=== PATIENT | male | born 1980 | race Caucasian/White ===

== ENCOUNTER 2016-07-06 21:37 | Emergency (ER) | payer OTHER ==
[2016-07-06] MEDS ORDERED: IOPAMIDOL 370 (76%) IV.SOLN 150 ML IV ONE (21:38)
[2016-07-07 00:29] LABS: ABSOLUTE NEUTROPHIL COUNT 5.3 K/mm3 (1.8-7.7); BASO % 0.4 % (0.2-1.0); EOS # 0.2 (0.0-0.5); EOS % 1.7 % (0.9-2.9); HEMATOCRIT 45.1 % (32.0-52.0); IMM NEUT # 0.1 K/mm3 (0-0.2); IMM NEUT% 0.8 % (0-1); LYMPH % 32.7 % (15-45); MEAN CELL VOLUME 82.9 fl (80.0-94.0); MEAN CORPUSCULAR HEMOGLOBIN 29.4 pg (27.0-31.0); MEAN CORPUSCULAR HGB CONC 35.5 g/dl (33.0-37.0); MEAN PLATELET VOLUME 9.4 fl (7.4-10.4); MONO # 0.7 (0.0-0.8); MONO % 7.1 % (4-12); NEUT % 57.3 % (43-75); PLATELET COUNT 282 K/mm3 (130-400); RED CELL DISTRIBUTION WIDTH 11.6 % (11.5-14.5)
[2016-07-07 00:41] LABS: CALCIUM 9.7 mg/dL (8.6-10.3)
--- NOTE | 2016-07-07 08:55 | CT ---
Examination: CT angiogram of the chest abdomen and pelvis. 3-D postprocessing. Clinical indication: Chest pressure and pain now radiating to right upper quadrant. Technique: Axial images were acquired through the chest abdomen and pelvis in a standard fashion. 4 mm stacked images were reviewed in the axial, sagittal and coronal planes. Upon completion, following uneventful administration of 150 mL of Isovue-[id number] intravenously, axial images were acquired through the chest abdomen and pelvis in a similar fashion during an arterial phase injection. 3-D post processing was performed as well at the [employer] workstation. NASCET criteria was used for stenosis measurement. Comparisons:None Findings: Thorax CTA:( without and with contrast): Non-angiogram findings: The lungs are clear. Thoracic inlet mediastinum heart pericardium pleural margins osseous structures and overlying soft tissues are normal. Abdomen CTA:( without and with contrast): Non-angiogram findings: The liver, spleen, pancreas, adrenals and visualized segments of small and large bowel are within normal limits. The kidneys are without solid mass or hydronephrosis. Left kidney exhibits a 2.2 cm cystic lesion. There is no nephrolithiasis. There is no retroperitoneal adenopathy. No inflammatory stranding is identified. Pelvic CTA: (Without and with contrast): Non-angiogram findings: There is no pelvic adenopathy or inflammatory stranding identified. The overlying soft tissues are within normal limits. The osseous structures are normal. There is diverticulosis without evidence of acute diverticulitis. The appendix is unremarkable. The prostate and bladder is within normal limits. There is no pelvic lymphadenopathy. CT angiogram findings (chest abdomen and pelvis): The thoracic and abdominal aorta are normal. There is no evidence of dissection or aneurysm. The great vessels within the thorax are normal. Pulmonary arteries well opacified throughout proximal aspect. No visible coronary vascular calcifications are identified. The abdominal aorta exhibits no evidence of dissection or aneurysm. No mural thrombus is identified. The aortic bifurcation and iliac vessels are unremarkable. Common femoral arteries are also within normal orbits. No gross venous abnormalities are identified. IMPRESSION: 1. Normal CT angiogram of the chest abdomen and pelvis. 2. Diverticulosis without evidence of acute diverticulitis. 3. Left renal cyst. Findings were communicated by [facility] to the emergency department at: 1:13 AM 07/07/2016
--- NOTE | 2016-07-07 09:01 | RAD ---
EXAMINATION:CHEST - 2 VIEWS CLINICAL INDICATION:Cough. COMPARISON:none FINDINGS: The cardiomediastinal silhouette is within normal limits. There is no adenopathy identified. There is no pleural effusion. The lungs are clear. The osseous structures are unremarkable for age. IMPRESSION: Negative PA and lateral views of the chest. No acute cardiopulmonary process is identified.
== END 2016-07-07 01:48 | disposition home or self-care (01) ==
LOC: ED 21:37
DX: R07.9 Chest pain, unspecified (principal); K57.90 Diverticulosis of intestine, part unspecified, without perforation or abscess without bleeding; R11.0 Nausea
CPT/HCPCS: 85025; 80048; 71020; 74174; 71275; 99284 ×2; Q9967